=== PATIENT | male | born 1965 | race Caucasian/White ===

== ENCOUNTER 2024-07-31 21:55 | Emergency (ER) | payer MEDICAID ==
[~2024-07-31] VITALS: Ht 182.9 cm; Wt 140.0 kg
[2024-07-31 22:03] VITALS: O2SAT 94
[2024-07-31 22:56] LABS: BASOPHILS % 0.4 % (0.0-2.0); EOSINOPHILS % 1.1 % (0.0-5.0); HEMOGLOBIN. 15.5 g/dL (14.0-18.0); LYMPHOCYTES % 16.9 % (20.0-50.0); MEAN CORPUSCULAR HEMOGLOBIN 29.3 pg (28.0-32.0); MEAN CORPUSCULAR HGB CONC 34.5 g/dL (31.0-37.0); MEAN CORPUSCULAR VOLUME 84.9 fL (80.0-94.0); MEAN PLATELET VOLUME 7.3 fl (7.4-10.4); MONOCYTES % 9.2 % (2.0-8.0); NEUTROPHILS % 72.4 % (40.0-76.0); PLATELET 214 x1000/uL (130-400); RED CELL DISTRIBUTION WIDTH 13.5 % (11.6-14.6); WHITE BLOOD COUNT 13.5 x1000/uL (4.5-11.0)
[2024-07-31 23:03] LABS: CHLORIDE 102 mEq/L (98-107); POTASSIUM 4.1 mEq/L (3.5-5.1); SODIUM 137 mEq/L (136-145)
[2024-07-31 23:04] LABS: CARBON DIOXIDE 28 mEq/L (21-32)
[2024-07-31 23:05] LABS: CALCIUM 9.5 mg/dL (8.7-10.4)
[2024-07-31 23:10] LABS: CREATININE 1.4 mg/dL (0.6-1.3); GLUCOSE 150 mg/dL (70-105); UREA NITROGEN BLOOD 20 mg/dL (9-23)
[2024-07-31 23:11] LABS: ALANINE AMINOTRANSFERASE 57 IU/L (10-49); ASPARTATE AMINOTRANSFERASE 52 IU/L (<34); TROPONIN I HIGH SENSITIVITY 8 ng/L (3.0-53)
[2024-07-31 23:12] LABS: ALBUMIN 4.1 g/dL (3.2-4.8); BILIRUBIN DIRECT 0.2 mg/dL (<=3.0); BILIRUBIN TOTAL 0.8 mg/dL (0.1-1.0); PROTEIN TOTAL 7.5 g/dL (6.0-8.3)
[2024-07-31 23:21] LABS: D-DIMER 14.85 mg/L FEU (<0.50); ETHANOL BLOOD < 10 mg/dL (<10); PROTHROMBIN TIME 11.4 sec (9.6-11.0)
[2024-08-01] MEDS ORDERED: ONDANSETRON HCL 4MG/2ML INJ IV PRN (00:15)
[2024-08-01] MEDS ORDERED: ZOLPIDEM TARTRATE 5MG TABLET PO PRN (00:15)
[2024-08-01] MEDS ORDERED: CLONIDINE 0.1MG TABLET PO PRN (00:15)
[2024-08-01] MEDS ORDERED: HYDROCODONE/ACETAMINOPHEN 5/325MG TABLET PO PRN (00:15)
[2024-08-01] MEDS ORDERED: MAGNESIUM/ALUMINUM HYDROXIDE/SIMETHICONE 30ML UDC PO PRN (00:15)
[2024-08-01] MEDS ORDERED: LORAZEPAM 0.5MG TABLET PO PRN (00:15)
[2024-08-01] MEDS ORDERED: IPRATROPIUM/ALBUTEROL 0.5-3(2.5)MG/3ML NEB NEB PRN (00:15)
[2024-08-01] MEDS ORDERED: ACETAMINOPHEN 325MG TABLET PO PRN (00:15)
[2024-08-01] MEDS: PANTOPRAZOLE SODIUM 40 MG/VIAL IV SCH (00:54)
[2024-08-01] MEDS ORDERED: NALOXONE HCL 0.4MG/ML VIAL IV PRN (01:00)
[2024-08-01] MEDS: IOHEXOL-350 100 ML BOTTLE ONE (03:43)
[2024-08-01 04:02] VITALS: BP 135/89; PULSE 90; RESP 20; TEMP 36.55848; O2SAT 94
[2024-08-01] MEDS ORDERED: ENOXAPARIN 40MG/0.4ML SYR SUBCUT SCH (09:00)
== END 2024-08-01 04:08 | disposition left against medical advice (07) ==
LOC: ER 21:55
DX: R55 Syncope and collapse (principal); I11.0 Hypertensive heart disease with heart failure; I50.9 Heart failure, unspecified; F12.10 Cannabis abuse, uncomplicated; F15.10 Other stimulant abuse, uncomplicated; F17.210 Nicotine dependence, cigarettes, uncomplicated
CPT/HCPCS: 80076; 80048; 80320; 83880; 83690; 85025; 85379; 85610; 84484; 36415; 71045; 71275; 70450; 93005; 99291; 93970; 96374; Q9967; G0480